=== PATIENT | male | born 1950 | race Native Hawaiian/Other Pacific Islander ===

== ENCOUNTER 2017-06-02 09:14 | Day surgery (SDC) | payer MEDICARE ==
[2017-06-02 09:36] VITALS: BMI 22.8
--- NOTE | 2017-06-02 10:53 | CP.SDSHP ---
Same Day Surgery H & P - Previous Medical/Surgical History Cardiac: Hypertension Endocrine/Metabolic: Diabetes Previous Surgical History: low anterior resection ileostomy recta carcinoma - Allergies Allergies: Allergies HAIR DYE Allergy (Uncoded 06/02/17 10:19) RASH - Physical Exam Vital Signs: Vital Signs 06/02/17 10:05 Temperature 98.6 F Pulse Rate 66 Respiratory 20 Rate Blood Pressure 130/80 O2 Sat by Pulse 98 Oximetry - Date & Time Date: 06/02/17 Time: 10:53 Short Stay Discharge - Short Stay Discharge Admitting Diagnosis/Reason for Visit: HISTORY OF RECTAL CARCINOMA Disposition: HOME/ ROUTINE
[2017-06-02] MEDS ORDERED: Lidocaine 2% Jelly (5 ml) TOP ONE (11:59)
[2017-06-02] MEDS ORDERED: Propofol 10 mg/ml Inj (20 ML) ONE ×2 (12:02→12:08)
[2017-06-02 12:48] VITALS: TEMP 97.3
[2017-06-02 13:47] VITALS: BP 118/74; PULSE 82; RESP 25; O2SAT 99
== END 2017-06-02 13:37 | disposition home or self-care (01) ==
LOC: C.ENDO 09:14
PROVIDERS: ATTEND Colon & Rectal Surgery
DX: K63.89 Other specified diseases of intestine (principal); R23.3 Spontaneous ecchymoses; Z85.048 Personal history of other malignant neoplasm of rectum, rectosigmoid junction, and anus; Z93.2 Ileostomy status
CPT/HCPCS: 45380; 82948; 88305; J2704

== ENCOUNTER 2018-05-17 08:05 | Day surgery (SDC) | payer MEDICARE ==
[2018-05-15 12:49] VITALS: BMI 24.3
[2018-05-17 08:46] VITALS: TEMP 98
[2018-05-17] MEDS ORDERED: Propofol 10 mg/ml Inj (20 ML) ONE (09:31)
--- NOTE | 2018-05-17 09:32 | CP.SDSHP ---
Same Day Surgery H & P - History Proposed Procedure: endoscopy Pre-Op Diagnosis: GI bleed - Previous Medical/Surgical History Endocrine/Metabolic: Diabetes - Allergies Allergies: Allergies HAIR DYE Allergy (Uncoded 05/17/18 08:32) RASH - Physical Exam Vital Signs: Vital Signs 05/17/18 05/17/18 08:34 08:47 Temperature 98 F 98 F Pulse Rate 87 87 Respiratory 20 20 Rate Blood Pressure 135/76 135/76 O2 Sat by Pulse 99 99 Oximetry Mental Status: Alert & Oriented x3 Neuro: WNL Heart: WNL Lungs: WNL GI: WNL - Impression Impression: GI bleed Pt. Evaluated Today:Candidate for Anesthesia & Procedure: Yes - Date & Time Date: 05/17/18 Time: 09:15 Short Stay Discharge - Short Stay Discharge Admitting Diagnosis/Reason for Visit: GASTRIC ULCER Disposition: HOME/ ROUTINE
[2018-05-17 13:18] VITALS: O2SAT 100
[2018-05-17 13:26] VITALS: BP 117/71; PULSE 69; RESP 15
== END 2018-05-17 11:20 | disposition home or self-care (01) ==
LOC: C.ENDO 08:05
PROVIDERS: ATTEND Internal Medicine Gastroenterology
DX: K25.9 Gastric ulcer, unspecified as acute or chronic, without hemorrhage or perforation (principal); D50.9 Iron deficiency anemia, unspecified; E11.9 Type 2 diabetes mellitus without complications; K44.9 Diaphragmatic hernia without obstruction or gangrene; K92.1 Melena; K31.89 Other diseases of stomach and duodenum
CPT/HCPCS: 43239; 82948; 88305; J2001; J2704